=== PATIENT | female | born 1990 | race Caucasian/White ===

== ENCOUNTER 2023-04-10 18:32 | Emergency (ER) | payer OTHER, MEDICAID, SELFPAY ==
[2023-04-10 18:34] VITALS: BP 112/82; PULSE 82; RESP 20; TEMP 36.7; O2SAT 99
[2023-04-10 19:35] VITALS: BMI 22.6
--- NOTE | 2023-04-10 19:35 | US_ITS ---
STUDY: FIRST TRIMESTER OBSTETRICAL ULTRASOUND REASON FOR EXAM: Female, 32 years old quant dropping, right pelvic pain, H/O ectopic LMP: 02/26/2023 TECHNIQUE: Transvaginal TECHNICAL QUALITY: Adequate. PRIOR ULTRASOUND: None. FINDINGS: There is no demonstrated intrauterine gestational sac.. The uterus measures 7.1 x 5.9 x 4.1 cm. There is no demonstrated uterine fibroid. The cervix is closed. The uterus is retroflexed. The right ovary measures 2.7 x 1.9 x 1.5 cm. There is no right ovarian cyst. There is no visualized right adnexal mass or complex lesion. The left ovary measures 3.9 x 2.4 x 2.0 cm. 2.4 cm septated cyst of the left ovary. Adjacent to the left ovary is a 1.5 cm solid appearing mass. There is a moderate amount of fluid in the cul de sac. Furthermore, the fluid is echogenic worrisome for hemorrhagic or purulent fluid. US/Transvaginal w/Preg US IMPRESSION: No intrauterine gestational sac with a small mass in the left adnexa and complex fluid in the cul-de-sac worrisome for ectopic . Correlation with serial beta hCG measurements would be useful. N.B. : The above Results were Read Back by Christiano Multani MD to Sienna Sher MD, and understanding confirmed on 04/10/2023 22:01:41 (ET). Electronically Signed: Christiano Multani MD at 22:02 EDT ,
[2023-04-10] MEDS: Ondansetron 4 MG/2 ML Vial IV (19:41)
[2023-04-10] MEDS: Morphine 2 MG/ML Syringe IV ×2 (19:42→22:03)
[2023-04-10] MEDS: 0.9% Normal Saline 1,000 ML 150 ML IV (19:46)
[2023-04-10 20:05] LABS: Absolute Neutrophil Count 8.1 X10^3/uL (2.0-7.7); Basophil# 0.04 X10^3/uL; Basophil% 0.4 % (0-1); Eosinophil# 0.06 X10^3/uL; Eosinophils% 0.5 % (0-5); Hemoglobin 13.5 g/dL (12.0-15.0); Lymphocyte % 18.3 % (19-41); Mean Corp Hgb Conc 32.1 g/dL (32-36); Mean Corpuscular Hgb 30.7 pg (27.0-32.0); Mean Corpuscular Volume 95.5 fL (81-99); Monocyte# 0.73 X10^3/uL; Monocyte% 6.7 % (0-10); NRBC Flagged by Analyzer 0 % (0-5); Neutrophil # 8.06 X10^3/uL (2.7-7.7); Neutrophil % 73.8 % (47-70); Platelet Count 302 K/mm3 (150-450); RBC Distribution Width CV 13.4 % (11.6-14.6); RBC Distribution Width SD 47.8 fl (35.1-43.9); White Blood Count 10.9 K/mm3 (4.4-11.0)
[2023-04-10 20:23] LABS: hCG Titer Quant., Serum 9 mIU/mL (1-3)
[2023-04-10 21:44] VITALS: BP 105/69; PULSE 74; RESP 16; O2SAT 100
--- NOTE | 2023-04-10 22:15 | EDS_ITS ---
HPI HPI - Female History of Present Illness Chief Complaint: Female C/O Detail of Chief Complaint: Pelvic pain, miscarriage Informant: patient Associated Symptoms P: 2 Ab: 2 Narrative Narrative: Patient presents with pelvic pain. She has been following with [facility] secondary to a miscarriage. She states her quant at its highest was 55 and yesterday was down to 15. She is having no pain at that time. This afternoon she developed a right adnexal pain. Due to concern for ectopic she p resents to the emergency room. She is not currently having any bleeding. PFSH PFS Medical History Depression Migraines Home Medications vits,calcium no.78-iron fumarate-folic acid 29 mg-1 mg tablet (Prena tabs FA) 1 tab PO DAILY 05/17/16 [History Last Taken 1 Day Ago ~06/12/16] Ibuprofen [Motrin] 800 mg PO TID PRN PRN Pain #30 tabs 06/14/16 [Rx Last Taken Unknown] oxycodone-acetaminophen 5 mg-325 mg tablet 1 tab PO Q6H PRN PRN Pain ##10 06/15/16 [Rx Last Taken Unknown] Allergy/AdvReac Type Severity Reaction Status Date / Time tioconazole Allergy Swelling Verified 04/10/23 18:34 [From Monistat 1 (tioconazole)] Surgical History H/O dilation and curettage Social History Smoking Status: Never smoker ROS ROS ED Constitutional Constitutional ED: Denies chills or fever(s) Eyes Eyes: Denies change in vision ENT ENT ED: Denies rhinorrhea or sore throat Cardiovascular Cardiovascular: Denies chest pain or palpitations Respiratory/Chest Respiratory/Chest: Denies cough or dyspnea Gastrointestinal Gastrointestinal: Reports abdominal pain; Denies diarrhea, nausea or vomiting Genitourinary Genitourinary ED: Denies dysuria Musculoskeletal Musculoskeletal: Denies back pain or extremity pain Integumentary Denies Abrasions or rash Neurologic Neurologic: Denies headache(s) or weakness Psychiatric Psychiatric: Denies anxiety or depression Allergic/Immunologic Allergic/Immunologic ED: Denies lip swelling or urticaria EXAM Physical Exam Const Vital Signs: 04/10/23 18:34 04/10/23 21:44 04/10/23 22:36 Temperature 98.1 F Temperature Source Temporal Pulse Rate 82 74 71 Respiratory Rate 20 H 16 16 Blood Pressure 112/82 H 105/69 106/69 Blood Pressure Mean 92 81 Pulse Ox 99 100 97 Oxygen Delivery Method Room Air Positive well nourished and well developed General Appearance ED: well developed HEENT Reports normocephalic and head/scalp atraumatic Eyes PERRL and EOMs intact bilaterally Neck supple Chest Wall inspection of chest normal and palpation of chest normal Resp normal respiratory effort and clear to auscultation bilaterally Cardio regular rate and regular rhythm GI GI Narrative: Mild lower abdominal tenderness palpation. No guarding or rebound. Palpation: soft Back/Spine no CVA tenderness Extremity normal to inspection Neuro oriented x3 and no sensory deficits noted Sensorium / Orientation: alert Motor Exam: strength 5/5 throughout Psych mental status grossly normal Skin no rashes or lesions noted MDM MDM MDM Narrative Medical decision making narrative: Patient given a small dose of morphine along with Zofran and IV fluids. Labwork obtained to evaluate for leukocytosis, anemia, and electrolyte derangement. Pelvic ultrasound obtained to evaluate for possible ectopic . Lab Data Attestation: I reviewed the patient's lab results. Labs: Laboratory Results - last 24 hr 04/10/23 19:40 WBC 10.9 RBC 4.40 Hgb 13.5 Hct 42.0 MCV 95.5 MCH 30.7 MCHC 32.1 RDW Std Deviation 47.8 H RDW Coeff of Mitali 13.4 Plt Count 302 MPV 11.0 Immature Gran % (Auto) 0.300 Neut % (Auto) 73.8 H Lymph % (Auto) 18.3 L [place] % (Auto) 6.7 Eos % (Auto) 0.5 Baso % (Auto) 0.4 Absolute Neuts (auto) 8.1 H Absolute Lymphs (auto) 2.00 Nucleated RBC % 0 HCG, Quant 9 H Blood Type A POSITIVE Radiography Diagnostic Testing: Clinical Impression(s) from Imaging Studies Obstetrics Ultrasound 04/10/23 19:35 IMPRESSION: No intrauterine gestational sac with a small mass in the left adnexa and complex fluid in the cul-de-sac worrisome for ectopic . Correlation with serial beta hCG measurements would be useful. N.B. : The above Results were Read Back by Christiano Multani MD to Sienna Sher MD, and understanding confirmed on 04/10/2023 22:01:41 (ET). Electronically Signed: Christiano Multani MD at 22:02 EDT , ADDENDUM: 04/10/23 2259 IMPRESSION: No intrauterine gestational sac with a small mass in the left adnexa and complex fluid in the cul-de-sac worrisome for ectopic . Correlation with serial beta hCG measurements would be useful. N.B. : The above Results were Read Back by Christiano Multani MD to Sienna Sher MD, and understanding confirmed on 04/10/2023 22:01:41 (ET). Electronically Signed: Christiano Multani MD at 22:02 EDT , ADDENDUM: 04/10/23 2316 IMPRESSION: No intrauterine gestational sac with a small mass in the left adnexa and complex fluid in the cul-de-sac worrisome for ectopic . Correlation with serial beta hCG measurements would be useful. N.B. : The above Results were Read Back by Christiano Multani MD to Sienna Sher MD, and understanding confirmed on 04/10/2023 22:01:41 (ET). Electronically Signed: Christiano Multani MD at 22:02 EDT , ADDENDUM: 04/10/23 2332 IMPRESSION: No intrauterine gestational sac with a small mass in the left adnexa and complex fluid in the cul-de-sac worrisome for ectopic . Correlation with serial beta hCG measurements would be useful. N.B. : The above Results were Read Back by Christiano Multani MD to Sienna Sher MD, and understanding confirmed on 04/10/2023 22:01:41 (ET). Electronically Signed: Christiano Multani MD at 22:02 EDT , ADDENDUM: 04/10/23 2349 IMPRESSION: No intrauterine gestational sac with a small mass in the left adnexa and complex fluid in the cul-de-sac worrisome for ectopic . Correlation with serial beta hCG measurements would be useful. N.B. : The above Results were Read Back by Christiano Multani MD to Sienna Sher MD, and understanding confirmed on 04/10/2023 22:01:41 (ET). Electronically Signed: Chrsitiano Multani MD at 22:02 EDT , ADDENDUM: 04/11/23 0006 IMPRESSION: No intrauterine gestational sac with a small mass in the left adnexa and complex fluid in the cul-de-sac worrisome for ectopic . Correlation with serial beta hCG measurements would be useful. N.B. : The above Results were Read Back by Christiano Multani MD to Sienna Sher MD, and understanding confirmed on 04/10/2023 22:01:41 (ET). Electronically Signed: Christiano Multani MD at 22:02 EDT , ADDENDUM: 04/11/23 0023 IMPRESSION: No intrauterine gestational sac with a small mass in the left adnexa and complex fluid in the cul-de-sac worrisome for ectopic . Correlation with serial beta hCG measurements would be useful. N.B. : The above Results were Read Back by Christiano Multani MD to Sienna Sher MD, and understanding confirmed on 04/10/2023 22:01:41 (ET). Electronically Signed: Christiano Multani MD at 22:02 EDT , ADDENDUM: 04/11/23 0039 IMPRESSION: No intrauterine gestational sac with a small mass in the left adnexa and complex fluid in the cul-de-sac worrisome for ectopic . Correlation with serial beta hCG measurements would be useful. N.B. : The above Results were Read Back by Christiano Multani MD to Sienna Sher MD, and understanding confirmed on 04/10/2023 22:01:41 (ET). Electronically Signed: Christiano Multani MD at 22:02 EDT , ADDENDUM: 04/11/23 0056 IMPRESSION: No intrauterine gestational sac with a small mass in the left adnexa and complex fluid in the cul-de-sac worrisome for ectopic . Correlation with serial beta hCG measurements would be useful. N.B. : The above Results were Read Back by Christiano Multani MD to Sienna Sher MD, and understanding confirmed on 04/10/2023 22:01:41 (ET). Electronically Signed: Christiano Multani MD at 22:02 EDT , ADDENDUM: 04/11/23 0113 IMPRESSION: No intrauterine gestational sac with a small mass in the left adnexa and complex fluid in the cul-de-sac worrisome for ectopic . Correlation with serial beta hCG measurements would be useful. N.B. : The above Results were Read Back by Christiano Multani MD to Sienna Sher MD, and understanding confirmed on 04/10/2023 22:01:41 (ET). Electronically Signed: Christiano Multani MD at 22:02 EDT , Treatment and Re-Evaluation Narrative: CBC was normal white count and hemoglobin level. hCG quant today is 9. Her blood type is a positive. Pelvic ultrasound is performed. There is no evidence of an intrauterine gestational sac. There is a small mass in the left adnexa and complex fluid in the cul-de-sac worrisome for ectopic . I spoke with Dr. Price, on-call for [facility] HUSBANDRY TECHNICIAN. She states that these clinical findings do not make sense with such a low hCG level and has significant doubts that this is any kind of an ectopic . She does feel patient can be safely discharged to home with close follow-up. Patient is to call the office tomorrow and may have a repeat ultrasound in the office tomorrow afternoon. This was discussed with patient and at bedside. Return instructions were provided. Discharge Plan Triage Chief Complaint: Female C/O ED Provider: Sienna Sher Dx/Rx/DC Orders Clinical Impression: Miscarriage, Pelvic pain Instructions: ED Miscarriage Spontaneous Prescriptions: No Action Prenatabs FA 1 TABLET tablet 1 tab PO DAILY Ibuprofen [Motrin] 800 MG tablet 800 mg PO TID PRN PRN (Reason: Pain) Qty: 30 0RF oxycodone-acetaminophen 1 TABLET tablet 1 tab PO Q6H PRN PRN (Reason: Pain) Qty: 10 0RF Primary Care Provider: Maury Galvan Referrals: Marina Price MD [Med Staff - Active Staff] - 1 Day Maury Galvan PA [Primary Care Provider] - Activity Restrictions/Additional Instructions: Call Dr. Price office in the morning. Let them know you are in the emergency room need to be seen for close follow-up. Disposition Disposition: Home, Self Care Discharge Date/Time: 04/10/23 22:51
[2023-04-10 22:36] VITALS: BP 106/69; PULSE 71; RESP 16; O2SAT 97
== END 2023-04-10 22:51 | disposition home or self-care (01) ==
PROVIDERS: Emergency Provider Emergency Medicine; PCP Physician Assistant; Visit Provider Emergency Medicine
DX: O03.9 Complete or unspecified spontaneous abortion without complication (principal)
CPT/HCPCS: 76817; 84702; 85025; 86900; 86901; 96361; 96374; 96375; 96376; 99283; J7030; A4216; J2405

== ENCOUNTER → 2023-04-24 | Outpatient (CLI) | payer OTHER, MEDICAID, SELFPAY ==
--- NOTE | 2023-04-24 11:45 | RAD_ITS ---
STUDY: HYSTEROSALPINGOGRAM. REASON FOR EXAM: Female, 32 years old. HX OF ATOPIC PREG FLUOROSCOPY TIME (if supplied): ( 15 seconds ) minutes/seconds. 2.74 mGy. One image was submitted. TECHNIQUE: Hysterosalpingogram was performed by the tab machine operator. Imaging was obtained. COMPARISON: None. FINDINGS: The uterus is unremarkable. Both fallopian tubes were visualized and patent. RAD/Salpingogram IMPRESSION: Normal hysterosalpingogram. Electronically Signed: Kin Das MD at 13:11 EDT ,
== END | disposition home or self-care (01) ==
PROVIDERS: PCP Physician Assistant; Referring Provider Obstetrics & Gynecology; Visit Provider Obstetrics & Gynecology
DX: N94.0 Mittelschmerz (principal); Z87.59 Personal history of other complications of pregnancy, childbirth and the puerperium
CPT/HCPCS: 58340; 74740; Q9967

== ENCOUNTER 2023-12-19 21:12 | Outpatient (CLI) | payer MEDICAID, SELFPAY ==
[2023-12-19 21:24] VITALS: BP 113/69; PULSE 110; O2SAT 98
[2023-12-19 21:37] VITALS: RESP 18; TEMP 36.6; O2SAT 98
[2023-12-19 21:43] VITALS: BMI 29.6
[2023-12-19 21:54] LABS: Color, Urine Yellow (Yellow); Glucose, Dipstick Normal (Normal); Ketone-Dipstick 50 mg/dl (Negative); Leukocyte Esterase-Dipstick 100 /ul (Negative); Nitrite-Dipstick Negative (Negative); Occult Blood-Urine Negative /ul (Negative); Protein-Dipstick 15 mg/dl (Negative); Specific Gravity, Urine 1.025 (1.002-1.030); Urine Bilirubin Dipstick Negative (Negative); Urine Clarity Sl. Cloudy (Clear); Urine Urobilinogen Normal (Normal)
[2023-12-19] MEDS: Lactated Ringers 1,000 ML 999 ML IV (22:45)
--- NOTE | 2024-01-01 17:51 | OB.TRI.NOTE ---
HPI - General General Date of Admission: 12/19/23 Date of Service: 12/19/23 Chief Complaint: ctx's HPI Narrative BARTOLO FREDERICK, is a 33 F who presents with contractions. PFSH PFSH Medical History Depression Migraines Home Medications vits,calcium no.78-iron fumarate-folic acid 29 mg-1 mg tablet (Prenatabs FA) 1 tab PO DAILY 05/17/16 [History Last Taken 12/18/23] Allergy/AdvReac Type Severity Reaction Status Date / Time tioconazole Allergy Swelling Verified 12/19/23 21:43 [From Monistat 1 (tioconazole)] Surgical History H/O dilation and curettage Social History Smoking Status: Never smoker History Elective abortions Hx Para 0 Spontaneous abortions Hx # Term Pregnancies Ectopic pregnancies Hx # Pregnancies Multiple births # of living children NST FHR Rate Baby A Baseline: 130 Variability:: Moderate Accelerations:: 15 x 15 Decelerations:: None NST Reactive:: Yes Uterine Activity:: irregular ctx's Assessment & Plan (1) 35 weeks gestation of : PLAN: No evidence of PTL at this time. D/c home with return precautions. (2) Uterine contractions:
== END 2023-12-20 00:18 | disposition home or self-care (01) ==
LOC: WPOUT 21:14 → WP 21:15
PROVIDERS: PCP Physician Assistant; Referring Provider Obstetrics & Gynecology; Visit Provider Obstetrics & Gynecology
DX: O47.03 False labor before 37 completed weeks of gestation, third trimester (principal); Z3A.35 35 weeks gestation of pregnancy
CPT/HCPCS: 59025; 59050; 81002; 87086; 87088; 99221; J7120; G0378

== ENCOUNTER 2024-01-05 14:15 | Outpatient (CLI) | payer MEDICAID, SELFPAY ==
[2024-01-05 14:27] VITALS: BP 128/77; PULSE 125; RESP 15; TEMP 36.4
[2024-01-05 14:28] VITALS: PULSE 134; O2SAT 98
[2024-01-05 14:51] VITALS: BMI 30.1
--- NOTE | 2024-01-06 08:25 | OB.TRI.NOTE ---
HPI - General General Date of Admission: 01/05/24 Date of Service: 01/05/24 Chief Complaint: contractions HPI Narrative BARTOLO FREDERICK, is a 33 F who presents c/o ctxs. Maternal Data Information Final OLGA LIDIA: 01/22/24 Gestational age: 37 4/7 [facility] Medical History Depression Migraines Home Medications ?Medication ?Instructions ?Recorded ?Last Taken ?Type vits,calcium no.78-iron 1 tab PO DAILY 05/17/16 12/22/23 History fumarate-folic acid 29 mg-1 mg tablet (Prenatabs FA) Allergy/AdvReac Type Severity Reaction Status Date / Time tioconazole (From Monistat 1 Allergy Swelling Verified 01/05/24 14:52 (tioconazole)) Surgical History H/O dilation and curettage Social History Smoking Status: Never smoker History Elective abortions Hx Para 0 Spontaneous abortions Hx # Term Pregnancies Ectopic pregnancies Hx # Pregnancies Multiple births # of living children NST FHR Rate Baby A Baseline: 130 Variability:: Moderate Accelerations:: 15 x 15 Decelerations:: None NST Reactive:: Yes FHR Category:: Category I Uterine Activity:: irreg ctxs Assessment & Plan (1) False labor after 37 completed weeks of gestation: PLAN: Plan high risk multigravida at 37 4/7 weeks w/ false labor d/c home, keep next appointment or return prn
== END 2024-01-05 15:53 | disposition home or self-care (01) ==
LOC: WPOUT 14:16 → WP 14:16
PROVIDERS: PCP Physician Assistant; Referring Provider Obstetrics & Gynecology; Visit Provider Obstetrics & Gynecology
DX: O47.1 False labor at or after 37 completed weeks of gestation (principal); Z3A.37 37 weeks gestation of pregnancy
CPT/HCPCS: 59025; 59050 ×2; G0378 ×2; 99221

== ENCOUNTER 2024-01-07 04:33 | Inpatient (IN) | payer MEDICAID, SELFPAY ==
[2024-01-07] VITALS (59 sets, daily range): BP systolic 91–152; BP diastolic 49–88; PULSE 75–171; RESP 16–18; TEMP 36.4–37.3; O2SAT 85–100; BMI 30.2
[2024-01-07] MEDS: Lactated Ringers 1,000 ML 50 ML IV ×2 (04:35→10:31)
[2024-01-07 04:59] LABS: Absolute Lymphocyte Count 1.78 X10^3/uL (0.83-4.51); Absolute Neutrophil Count 8.2 X10^3/uL (2.0-7.7); Basophil# 0.05 X10^3/uL; Basophil% 0.5 % (0-1); Eosinophil# 0.07 X10^3/uL; Eosinophils% 0.6 % (0-5); Hematocrit 34.1 % (37-47); Hemoglobin 10.6 g/dL (12.0-15.0); Lymphocyte # 1.78 X10^3/ul (0.83-4.51); Lymphocyte % 16.1 % (19-41); Mean Corp Hgb Conc 31.1 g/dL (32-36); Mean Corpuscular Hgb 28.4 pg (27.0-32.0); Mean Corpuscular Volume 91.4 fL (81-99); Monocyte# 0.89 X10^3/uL; NRBC Flagged by Analyzer 0 % (0-5); Neutrophil # 8.23 X10^3/uL (2.7-7.7); Neutrophil % 74.3 % (47-70); Platelet Count 303 K/mm3 (150-450); RBC Distribution Width CV 13.9 % (11.6-14.6); RBC Distribution Width SD 46.6 fl (35.1-43.9); Red Blood Count 3.73 M/mm3 (4.2-5.4); White Blood Count 11.1 K/mm3 (4.4-11.0)
[2024-01-07] MEDS: Acetaminophen 500 MG Tablet PO (05:02)
[2024-01-07] MEDS: LACTATED RINGERS 500 ML 999 ML IV ×4 (06:43→10:45)
[2024-01-07] MEDS: Oxytocin 15 Units/NS 250ml 15 UNITS/250 ML IV.SOLN 2 UNITS IV (06:55)
--- NOTE | 2024-01-07 08:47 | PCM.HP.OB ---
HPI - General General Date of Admission: 01/07/24 Date of Service: 01/07/24 HPI Narrative BARTOLO FREDERICK, is a 33 F who presents Maternal Data Information Final OLGA LIDIA: 01/22/24 Gestational age: 37+6 [facility] Medical History HPV (human papilloma virus) infection History of premature rupture of membranes (PPROM) History of pre-term labor Anxiety depression Depression Migraines Allergy/AdvReac Type Severity Reaction Status Date / Time tioconazole (From Monistat 1 Allergy Swelling Verified 01/07/24 05:14 (tioconazole)) Surgical History H/O dilation and curettage Social History Smoking Status: Never smoker History Elective abortions Hx Para 2 Spontaneous abortions Hx # Term Pregnancies Ectopic pregnancies Hx # Pregnancies Multiple births # of living children NST FHR Rate Baby A Baseline: 135 Variability:: Minimal and Moderate Accelerations:: 15 x 15 Decelerations:: None NST Reactive:: Yes FHR Category:: Category I Uterine Activity:: q3-4 ROS Constitutional Constitutional: Denies fatigue, fever(s) or malaise Eyes Eyes: Denies change in vision ENT HEENT: Denies dizziness or headache(s) Cardiovascular Cardiovascular: Denies chest pain, dyspnea or lightheadedness Respiratory/Chest Respiratory/Chest: Denies cough or dyspnea Gastrointestinal Gastrointestinal: Denies change in bowel habits Genitourinary Genitourinary: Denies burning urination or genital lesions Integumentary Integumentary: Denies rash Neurologic Neurologic: Denies confusion, dizziness, headache(s), numbness or weakness Vital Signs Vital Signs Vital Signs: 01/07/24 04:17 01/07/24 04:17 01/07/24 04:17 Temperature Temperature Source Pulse Rate 102 H Respiratory Rate Blood Pressure 122/78 H 122/78 H BP Systolic 122 122 BP Diastolic 78 78 01/07/24 04:17 01/07/24 04:17 01/07/24 04:17 Temperature Temperature Source Temporal Temporal Pulse Rate 102 H Respiratory Rate Blood Pressure BP Systolic BP Diastolic 01/07/24 04:17 01/07/24 04:17 01/07/24 04:17 Temperature 98.4 F Temperature Source Pulse Rate Respiratory Rate 16 16 Blood Pressure BP Systolic BP Diastolic 01/07/24 04:17 01/07/24 05:36 01/07/24 05:36 Temperature 98.4 F Temperature Source Pulse Rate Respiratory Rate Blood Pressure 112/65 112/65 BP Systolic 112 112 BP Diastolic 65 65 01/07/24 05:36 01/07/24 05:36 01/07/24 06:31 Temperature Temperature Source Pulse Rate 94 94 Respiratory Rate Blood Pressure 108/56 L BP Systolic 108 BP Diastolic 56 01/07/24 06:31 01/07/24 06:31 01/07/24 06:31 Temperature Temperature Source Pulse Rate 95 95 Respiratory Rate Blood Pressure 108/56 L BP Systolic 108 BP Diastolic 56 01/07/24 07:16 01/07/24 07:16 01/07/24 07:16 Temperature Temperature Source Pulse Rate 83 Respiratory Rate Blood Pressure 122/64 H 122/64 H BP Systolic 122 122 BP Diastolic 64 64 01/07/24 07:16 01/07/24 07:16 01/07/24 07:16 Temperature Temperature Source Temporal Temporal Pulse Rate 83 Respiratory Rate Blood Pressure BP Systolic BP Diastolic 01/07/24 07:16 01/07/24 07:16 01/07/24 07:16 Temperature 98.2 F Temperature Source Pulse Rate Respiratory Rate 16 16 Blood Pressure BP Systolic BP Diastolic 01/07/24 07:16 01/07/24 08:16 01/07/24 08:16 Temperature 98.2 F Temperature Source Pulse Rate Respiratory Rate Blood Pressure 125/71 H 125/71 H BP Systolic 125 125 BP Diastolic 71 71 01/07/24 08:16 01/07/24 08:16 01/07/24 08:16 Temperature Temperature Source Temporal Pulse Rate 85 85 Respiratory Rate Blood Pressure BP Systolic BP Diastolic 01/07/24 08:16 01/07/24 08:16 01/07/24 08:16 Temperature Temperature Source Temporal Pulse Rate Respiratory Rate 16 16 Blood Pressure BP Systolic BP Diastolic 01/07/24 08:16 01/07/24 08:16 Temperature 97.9 F 97.9 F Temperature Source Pulse Rate Respiratory Rate Blood Pressure BP Systolic BP Diastolic Weight Weight: 77.564 kg Body Mass Index (BMI) 30.2 Physical Exam Const alert and no apparent distress General Appearance: cooperative HEENT normocephalic Resp normal respiratory effort GI soft to palpation GI Narrative: gravid, nontender, appropriate for gestational age Extremity no calf tenderness General Extremity: edema Skin no wounds Rashes: No rashes noted Psych activity/motor behavior normal Labs Labs Labs: Blood Type A POSITIVE Antibody Screen NEGATIVE Hct 34.1 % (37-47) L Hgb 10.6 g/dL (12.0-15.0) L Obstetrics Ultrasound Syphilis Total Ab Pending Rhogam given: No Assessment & Plan (1) PROM (premature rupture of membranes): (2) 37 weeks gestation of : PLAN: Plan Augmentation with Pitocin
[2024-01-07] MEDS: fentaNYL-bupivacaine (epidural) 100 ML BAG EPIDURAL (09:55)
[2024-01-07 10:18] LABS: Syphilis Antibodies Non-reactive
[2024-01-07] MEDS: Ondansetron 4 MG/2 ML Vial IV (10:51)
[2024-01-07] MEDS: Oxytocin 15 Units/NS 250ml 15 UNITS/250 ML IV.SOLN 83 UNITS IV (13:26)
--- NOTE | 2024-01-07 14:16 | LES_PTH ---
PATIENT: BARTOLO FREDERICK LOC: [facility] U#:[id number] AGE/SX: 33/F ROOM: WP014 RE01/07/[address]: Dr. 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 AM/mr 01/09/2024 MICROSCOPIC DESCRIPTION Slides are reviewed. GROSS DESCRIPTION Received is one container labeled with the patient's name and not further designated. The specimen consists of a piece of light brown skin measuring 0.5 x 0.3 x 0.2cm. This specimen is inked and submitted entirely in one cassette. JANE/ 01/08/2024 TC:1 CPT:09389
[2024-01-07 14:41] LABS: Pathology Specimen OB SEE PATHOLOGY REPORT
[2024-01-07] MEDS: Ibuprofen 600 MG Tablet PO (18:19)
--- NOTE | 2024-01-07 20:21 | EX.PCM.OBRPT ---
Assessment & Plan (1) 37 weeks gestation of : (2) (spontaneous vaginal delivery): Maternal Data Information Final OLGA LIDIA: 01/22/24 Gestational age: 37+6 Vaginal Delivery Maternal Presentation Maternal Presentation: Spontaneous Rupture of Membranes Maternal Presentation: Admited over night with SROM. Type of Induction: Pitocin Operative Information Date of Procedure: 01/07/24 Pre-Operative Diagnosis: SROM at term Post-Operative Diagnosis: Same Surgery / Procedure Performed: Spontaneous Vaginal Delivery Type of Anesthesia: Epidural Estimated Blood Loss: 100 cc Time of Delivery: 12:52 Findings Description of Procedure: After progressing to complete, patient pushed over an intact perineum from a +2 station. delivered JOSE with a CAN x 2 that was easily reduced. The anterior and posterior shoulders then delivered with maternal effort. The infant was placed on the maternal abdomen. The cord was clamped and cut. The placenta was delivered with gentle traction. A small first degree laceration needed repaired. Presentation: JOSE Amniotic Membrane Rupture Type: Spontaneous Amniotic Fluid Description: Clear Placental Delivery Description: Spontaneous Placenta Disposition: [facility] Cord Vessel Description: 3 Vessels Cord Entanglement: Around neck x 2, loose Nuchal Cord Compression: Without compression A Gender: Male (1 minute): 8 (5 minute): 9 Delayed Cord Clamping: Yes Post Vaginal Delivery Medications Given After Delivery: IV Pitocin Episiotomy Description: None Laceration: 1st degree Complication Complications: None
[2024-01-07] MEDS: Acetaminophen 500 MG Tablet 1000 MG PO (23:05)
[2024-01-08] VITALS (9 sets, daily range): BP systolic 112–120; BP diastolic 56–71; PULSE 64–104; RESP 16–17; TEMP 36.4–37.3; O2SAT 98
[2024-01-08] MEDS: Ibuprofen 600 MG Tablet PO ×2 (01:51→08:48)
--- NOTE | 2024-01-08 08:17 | DS.PCM_ITS ---
Providers Date of Admission: 01/07/24 Primary Care Physician: LUCHO Izquierdo Reason For Visit: VAGINAL DELIVERY Diagnosis Discharge Diagnosis (1) 37 weeks gestation of : Status: Acute Code(s): Z3A.37 - 37 weeks gestation of (2) (spontaneous vaginal delivery): Status: Acute Code(s): O80 - Encounter for full-term uncomplicated delivery Medications at Discharge Home Medications acetaminophen 500 mg tablet 1,000 mg (2 x 500 mg) PO Q6H PRN PRN Pain 1-10 Or Fever #0 tabs 01/08/24 ibuprofen 600 mg tablet 600 mg PO Q6H PRN PRN Pain Score 1-10 #0 tabs 01/08/24 Hospital Course Operations None Procedures None Summary of Care Provided Minutes Spent on Discharge: 15 Hospital Course: Hospital course was uneventful. Physical Exam Narrative Patient seen at bedside. Desires discharge home. Showered this morning. Voiding without difficulty. Lochia decreased. Const alert and no apparent distress General Appearance: cooperative and comfortable Exam Limitations: no limitations HEENT normocephalic Eyes General Eye: normal appearance of both eyes Neck full ROM General: normal visual inspection Chest Chest: symmetrical chest wall rise Resp normal respiratory effort and normal air movement Effort and Inspection: symmetric chest movement Auscultation: clear to auscultation bilaterally Cardio regular rate and regular rhythm GI normal to inspection, nondistended, normoactive bowel sounds Back/Spine normal ROM Extremity full ROM and no calf tenderness General Extremity: normal exam except as noted Skin no rashes or lesions noted Neuro CN's II-XII intact bilaterally Psych mental status grossly normal Weight / BMI Weight Weight: 171 lb Body Mass Index (BMI) 30.2 ABG / Lab / Microbiology Data 01/07/24 04:35 Laboratory: Laboratory Results - last 24 hr 01/07/24 04:35: Syphilis Total Ab Non-reactive D/C Instructions Discharge Diet: No restrictions May resume sexual activity in: 6-8 weeks Weight Bearing Status: Weight bearing as tolerated Call your doctor if you observe: Fever of 101 or Higher, Inability to urinate, Using more than 1 pad per hour, Shortness of breath, Chest pain, Calf discomfort and Uncontrolled pain When: 2 weeks virtual visit/ 6 weeks in office Meaningful Use Info Meaningful Use Meaningful Use Diagnoses (Choose all that apply): None applicable Ischemic Stroke Statin Dosing Therapy Reference: STATIN DOSE THERAPY REFERENCE: * Patients > 75 years receive moderate or high dose statin therapy. * Patients 75 years or YOUNGER should receive HIGH intensity statin dose unless contraindicated. You will be required to document reason for non-treatment if statin daily dose does not meet guidelines. HIGH DOSE STATIN THERAPY DAILY Atorvastatin > than or = to 40 mg Rosuvastatin > than or = to 20 mg Amlodipine + Atorvastatin > than or = to 2.5/40 mg Ezetimibe + Simvastatin 10/80 mg Simvastatin 80mg Discharge Plan Admission Admit Date/Time: 01/07/24 04:33 Primary Reason for Your Visit: Labor and Delivery Attending Provider: Sienna Krishnan Primary Care Provider: Maury Galvan Discharge Orders/Prescriptions Prescriptions: New acetaminophen 500 mg Tablet 1,000 mg PO Q6H PRN PRN (Reason: Pain 1-10 Or Fever) Qty: 0 0RF ibuprofen 600 mg Tablet 600 mg PO Q6H PRN PRN (Reason: Pain Score 1-10) Qty: 0 0RF Referrals / Follow Up: Roxanna Johnson CNM [Med Staff - [facility] Practice Prof] - Maury Galvan PA [Primary Care Provider] - Disposition Disposition (needs filled in before D/C Order can be placed): Home, Self Care
--- NOTE | 2024-01-08 11:22 | CASEMGMT ---
Social Work Assessment Labor and Delivery Unit Patient Address:[address] [place] [id number] Phone number: [phone] Date of Referral: 01/07/24 Time of Referral:? 1633 Referred By: Sienna Krishnan Date of Intervention: ??01/08/24 Time of Intervention:? 1030 Reason for Referral:? hx depression Sw completed chart review and acknowledges social work consult due to maternal mental health history positive for depression. Sw presented to bedside and introduced self to mother of baby (AKIN- Sierra) and father of baby (FOB- Abel). Sw explained sw role and completed psychosocial assessment. History obtained from: medical records, MOB and FOB Household composition: Currently residing in the family home is MOB, EUGENE, AKIN's two older children (Marcelo Christina (7), and Ronny Christina (5). baby will join family when ready for discharge. Parents deny any issues or concerns with their housing at this time. Patient's parent/guardian status:?AKIN states that she and EUGENE have been together now for 2 years. They met while working together. baby is first baby for EUGENE. No concerns regarding domestic violence or intimate partner violence. AKIN became tearful during conversation- stating that this relationship is different than her former one, and EUGENE is extremely supportive and emotionally available for her. ? Medical History: ?AKIN is 33 year old female who is 5, para 2- now 3 following labor and delivery. AKIN states that she experienced an ectopic and then a miscarriage before she conceived this baby. AKIN received routine care during with [facility]. AKIN presented to hospital and delivered baby via vaginal delivery on 01/07/24 at 37 weeks gestation. Baby boy, named Macario Perales, was born weighing 7lb 7oz with apgars of 8 and 9 at one and five minutes of life, respectfully. AKIN states that she is breast feeding and this is going okay. AKIN reports that baby will be followed by Dr. Teran for pediatrics. Educational Status:?AKIN completed high school and obtained her Medical Assisting certificate. EUGENE states that he completed the 11th grade. No issues with reading, learning or comprehension. Financial Status: Both parents are gainfully employed outside of the home. 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 AKIN works at home for 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 Parents state that they do not have a lot of childcare support so they manage their schedules around one of them being able to watch and care for the children. Supplies:??AKIN states that she has obtained all necessary baby supplies, including: car seat, safe sleep space, clothes, diapers and wipes. Childcare/Caregiver(s):? AKIN states that she and EUGENE are the primary caregivers. Transportation:?No transportation barriers, both parents have their license and reliable means of transportation. ? Programs/Agencies Involved: ?AKIN is connected to [employer] and recently applied for SNAP benefits. MOB also considering getting connected to [employer]. AKIN is receiving counseling provided by [facility] in [place]. ?? Children Services/Legal Issues:???No history of children services involvement. No issues or concerns warranting referral to be made at this time. - AKIN states that she is currently in the middle of a custody curry with her ex and her older two children. AKIN states that a Naturopathic Doctor is involved and their upcoming court date is scheduled for February 09. AKIN states that this has been going on for over a year and has been a source of extreme frustration. AKIN states that this is the reason that prompted her and the older two boys to get connected to mental health supports and services. Behavioral Health Issues: ??Mental Health History:?EUGENE states that he does experience symptoms of anxiety, but has never been officially diagnosed. FOLina states that he is able to manage his symptoms and is not connected to mental health supports. AKIN states that she has been diagnosed with anxiety, depression and did experience depression in the past. AKIN denies any medication. ?Substance Use History:? Parents deny substance use. ? Family History:?Parents deny history of family substance use or significant mental health diagnoses. ? Drug Screens: No urine screens observed in chart review. ?? Family/Social Stressors:? AKIN identifies that the ongoing court curry with her ex is the biggest source of her stress at this time. AKIN states that also the two losses that she experienced were also a lot to process as well. Support Systems: Parents state that they are each others biggest supports, but they also have friends and family who are supportive. Depression/Shaken Baby/Safe Sleeping:? Sw educated parents on signs and symptoms of baby blues and depression and anxiety. Parents express understanding. FOB states that he would be able to recognize if MOB were to struggle, and he believes he would know how to help and support her if she were to struggle. Sw educated parents on shaken baby prevention and ABCs of safe sleep. Parents express understanding. ASSESSMENT:? MOB and baby admitted following labor and delivery. MOB and FOB both engaged and conversational during completion of psychosocial assessment. MOB with mental health history of anxiety and depression and did experience depression in the past. MOB states that she feels different this time, and is in a healthier relationship. MOB states that if she were to experience any mental health struggles this time she has the skills and support to help her. Parents were observed to be supportive of one another. They have obtained all necessary baby supplies and have natural supports in place. PLAN:?MOB and baby to be discharged when medically ready. ?No other services requested or indicated. Oli Hightower, BEHAVIOR SUPPORT SPECIALIST, [facility]
== END 2024-01-08 14:40 | disposition home or self-care (01) | DRG 560 ==
LOC: WPOUT 04:39 → WP 04:39
PROVIDERS: Admitting Provider Obstetrics & Gynecology; PCP Physician Assistant; Visit Provider Obstetrics & Gynecology
DX: O42.913 Preterm premature rupture of membranes, unspecified as to length of time between rupture and onset of labor, third trimester (principal); Z37.0 Single live birth; O69.2XX0 Labor and delivery complicated by other cord entanglement, with compression, not applicable or unspecified; Z3A.37 37 weeks gestation of pregnancy
CPT/HCPCS: 59025; 59050; 85025; 86780; 86850; 86900; 86901; 88305; 99221; J7120; G0378; J2405